=== PATIENT | male | born 1930 | race Caucasian/White ===

== ENCOUNTER 2017-10-08 04:53 | Inpatient (IN) | payer MEDICARE, OTHER ==
[~2017-10-08] VITALS: Ht 165.1 cm; Wt 64.0 kg
[2017-10-08] VITALS (7 sets, daily range): BP systolic 122–208; BP diastolic 47–99
[2017-10-08] MEDS ORDERED: TAMS0.4C32 PO (05:02)
[2017-10-08] MEDS ORDERED: RIVA15T PO (05:02)
[2017-10-08] MEDS ORDERED: ALLO100T PO (05:02)
[2017-10-08] MEDS ORDERED: ATEN25TA PO (05:02)
[2017-10-08] MEDS ORDERED: HydrALAZINE HCL 20 MG/ML VIAL IVP ONE (05:45)
[2017-10-08 05:55] LABS: BASOPHILS % (AUTO) 0.4 % (0.0-2.0); EOSINOPHILS % (AUTO) 6.4 % (1.0-6.0); HEMATOCRIT 39.9 % (41-53); HEMOGLOBIN 13.1 g/dL (13.5-17.5); LYMPHOCYTES # (AUTO) 3.3 K/uL (1.0-4.8); LYMPHOCYTES % (AUTO) 41.3 % (22.0-44.0); MEAN CORPUSCULAR HEMOGLOBIN 31.9 pg (26.0-34.0); MEAN CORPUSCULAR HGB CONC 32.9 G/dL (31.0-37.0); MEAN CORPUSCULAR VOLUME 97 fL (80-100); MONOCYTES # (AUTO) 0.6 K/uL (0.1-1.0); MONOCYTES % (AUTO) 6.9 % (2.0-9.0); NEUTROPHILS # (AUTO) 3.6 K/uL (1.8-7.7); PLATELET COUNT (AUTO) 171 K/uL (150-450); RED BLOOD CELL COUNT(AUTO) 4.12 MIL/uL (4.50-5.90); RED CELL DISTRIBUTION WIDTH 15.6 % (11.5-14.5)
[2017-10-08] MEDS ORDERED: ASPIRIN 81 MG EC TABLET PO ONE (06:00)
[2017-10-08 06:01] LABS: CALCIUM, TOTAL 8.7 mg/dL (8.8-10.5); CREATININE 1.3 mg/dL (0.60-1.30); POTASSIUM 3.3 mmol/L (3.5-5.1)
[2017-10-08 06:06] LABS: ALBUMIN 3.1 g/dL (3.4-5.0); BILIRUBIN,TOTAL 0.5 mg/dL (0.1-1.0); TOTAL PROTEIN, SERUM 7.3 g/dL (6.4-8.2)
[2017-10-08 06:25] LABS: INR 1.2 (0.9-1.1); PROTHROMBIN TIME 12.4 SEC (9.4-11.6)
[2017-10-08] MEDS ORDERED: ONDANSETRON HCL 4 MG/2 ML VIAL IVP PRN ×2 (07:15→13:30)
[2017-10-08] MEDS ORDERED: HydrALAZINE HCL 20 MG/ML VIAL IVP PRN (07:15)
[2017-10-08] MEDS ORDERED: ACETAMINOPHEN 325 MG TABLET PO PRN ×2 (07:15→13:30)
[2017-10-08] MEDS ORDERED: BISACODYL 10 MG RECTAL RECTAL SUPPOSITORY PR PRN (13:30)
[2017-10-08] MEDS ORDERED: HYDROCODONE/ACETAMINOPHEN 5-325 MG TABLET PO PRN (13:30)
[2017-10-08] MEDS ORDERED: MORPHINE SULFATE 2 MG/ML SYRINGE IVP PRN (13:30)
[2017-10-08] MEDS ORDERED: MAGNESIUM HYDROXIDE SUSPENSION 30 ML UDCUP PO PRN (13:30)
[2017-10-08] MEDS ORDERED: ZOLPIDEM TARTRATE 5 MG TABLET PO PRN (13:30)
[2017-10-08] MEDS ORDERED: POTASSIUM CHL 10 MEQ/WATER 50 ML IV PRN (18:30)
[2017-10-08] MEDS ORDERED: POTASSIUM CHLORIDE 20 MEQ ER TABLET PO PRN (18:30)
[2017-10-08] MEDS: RIVAROXABAN 15 MG TABLET PO SCH (20:58)
[2017-10-08] MEDS: DOCUSATE SODIUM 100 MG CAPSULE PO SCH (20:58)
[2017-10-09] MEDS: HydrALAZINE HCL 20 MG/ML VIAL IVP PRN ×2 (00:08→13:47)
[2017-10-09 05:00] VITALS: BP 113/48
[2017-10-09 07:20] VITALS: BP 132/56
[2017-10-09] MEDS: DOCUSATE SODIUM 100 MG CAPSULE PO SCH (08:22)
[2017-10-09] MEDS: RIVAROXABAN 15 MG TABLET PO SCH (08:22)
[2017-10-09] MEDS ORDERED: AmLODIPine BESYLATE 10 MG TABLET PO SCH (09:00)
[2017-10-09] MEDS ORDERED: RIVAROXABAN 15 MG TABLET PO SCH (09:00)
[2017-10-09] MEDS ORDERED: PANTOPRAZOLE SODIUM 40 MG DR TABLET PO SCH (09:00)
[2017-10-09] MEDS ORDERED: TAMSULOSIN HCL 0.4 MG CAPSULE PO SCH (09:00)
[2017-10-09] MEDS ORDERED: ALLOPURINOL 100 MG TABLET PO SCH (09:00)
[2017-10-09 11:03] VITALS: BP 163/52
[2017-10-09 14:20] VITALS: BP 138/57
[2017-10-09] MEDS ORDERED: DOBUTamine HCL/D5W 500 MG/250 ML IV BAG [STRESS LAB ONLY] IV ONE ×2 (14:22→15:59)
[2017-10-09 14:39] VITALS: BP 153/40
[2017-10-09] MEDS ORDERED: AMLO10TA55 PO (15:25)
[2017-10-09] MEDS ORDERED: HYDR25TA84 PO (15:25)
[2017-10-09 15:38] VITALS: BP 110/52
== END 2017-10-09 16:00 | disposition home or self-care (01) | DRG 305 ==
LOC: EMS 04:55 → 5N 08:04
PROVIDERS: ADMIT Internal Medicine; ATTEND Internal Medicine
DX: I10 Essential (primary) hypertension (principal); I48.2 Chronic atrial fibrillation; R07.9 Chest pain, unspecified; M10.9 Gout, unspecified; N40.0 Benign prostatic hyperplasia without lower urinary tract symptoms; R00.1 Bradycardia, unspecified; Z79.899 Other long term (current) drug therapy
CPT/HCPCS: 84132; 93005; 93017; 93306; 93350; 96374; 99285; J0360; J1250